=== PATIENT | male | born 1965 | race Hispanic/Latino ===

== ENCOUNTER → 2024-05-02 | Emergency (ER) | payer BC ==
[~2024-05-02] VITALS: Ht 182.9 cm; Wt 117.9 kg
[~2024-05-02] MED LIST: CEPHALEXIN 500 MG CAPSULE PO ONE; HYDROCODONE/ACETAMINOPHEN 5/325 MG TAB PO ONE; LIDOCAINE HCL 1% 20 ML VIAL INJ SCH; TETANUS/DIPHTHERIA TOXOID [ADULT] 0.5 ML VIAL IM ONE
[2024-05-02 11:11] VITALS: BP 128/83; PULSE 81; RESP 20
== END ==
LOC: EDH 10:59
DX: S67.193A Crushing injury of left middle finger, initial encounter (principal); W23.0XXA Caught, crushed, jammed, or pinched between moving objects, initial encounter; Y93.89 Activity, other specified; Y92.89 Other specified places as the place of occurrence of the external cause; Y99.0 Civilian activity done for income or pay
CPT/HCPCS: 99281